=== PATIENT | female | born 1965 ===

== ENCOUNTER 2021-10-10 06:04 | Day surgery (SDC) | payer OTHER ==
[~2021-10-10 06:04] MED LIST: SYNTHROID150 MCG PO
[2021-10-10] MEDS ORDERED: NEURONTIN300 MG PO (09:45)
[2021-10-10] MEDS ORDERED: ULTRAM50 MG PO (09:45)
[2021-10-10] MEDS ORDERED: KETO10TA2 PO (09:45)
[2021-10-10] MEDS ORDERED: MIRALAX17 GM PO (09:45)
[2021-10-10] MEDS ORDERED: TYLENOL ARTHRI650 MG PO (09:45)
== END 2021-10-10 12:35 | disposition home or self-care (01) ==
LOC: CIR.AMB 06:04 → ADM 08:45 → CIR.AMB 08:45
PROVIDERS: ATTEND Surgery
DX: K42.0 Umbilical hernia with obstruction, without gangrene (principal); Z91.013 Allergy to seafood; E03.9 Hypothyroidism, unspecified; K21.9 Gastro-esophageal reflux disease without esophagitis; E66.9 Obesity, unspecified